=== PATIENT | male | born 1995 | race African-American/Black ===

== ENCOUNTER 2017-02-18 19:21 | Inpatient (IN) | payer OTHER ==
[~2017-02-18] VITALS: Ht 188 cm; Wt 121.1 kg
--- NOTE | ~2017-02-18 | S ---
[facility] [place] [address] SURGICAL PATH RPT PROCEDURE Name: FARRUKH HEIN V Room #: 438-P DIS IN M.R.#: [id number] Admission: 02/18/17 Date of : 89 Discharge: 02/20/17 Report #: [id number] Path Case #: [id number] PATHOLOGY REPORT COLLECTION DATE: 02/19/2017 RECEIVED DATE: 02/19/2017 SUBMITTING PHYS: Dr. Deandre Urena OTHER PHYS: SPECIMEN(S) RECEIVED: A.Appendix B.Mucoid cyst of peritoneum * * * * * * * * * * * * FINAL DIAGNOSIS: A. Appendix, appendectomy: - Acute appendicitis and serositis. - No evidence of carcinoid tumor. B. Peritoneum, excision: - Benign mesothelium lined cyst. COMMENT: This case is co-reviewed by Dr. Ericka Lundberg. PATHOLOGIST: Farrukh Flowers M.D. REPORT ELECTRONICALLY SIGNED BY: Farrukh Flowers M.D. DATE/TIME: 02/21/2017 13:08 * * * * * * * * * * * * GROSS PATHOLOGY: A. Received in formalin labeled "Farrukh Hein appendix," is an appendix measuring 7.8 cm in length and up to 1.2 cm in diameter with a minimal amount of attached mesoappendix. The serosal surface is pink-hinton with a slight amount of overlying adhesions, as well as exudate near the distal tip. Sectioning reveals a pinpoint to slightly patent lumen filled with blood-tinged fecal material. Leasing Property Manager sections are submitted in cassette A1 and A2, with the proximal margin and bisected tip submitted in cassette A1. B. The specimen is received in formalin labeled "Farrukh Hein, mucinous cyst from peritoneum". Received is a segment of transparent capsular tissue measuring 3.8 x 1.0 x 0.1 cm in greatest dimensions. The specimen is submitted entirely in cassette B1. (CAA; 02/20/2017) CLINICAL HISTORY: [facility] [place] [address] SURGICAL PATH RPT PROCEDURE Name: FARRUKH HENI V Room #: 438-P DIS IN M.R.#: [id number] Admission: 02/18/17 Date of : 89 Discharge: 02/20/17 Report #: [id number] Path Case #: [id number] Acute appendicitis, check for carcinoid tumor of appendix INITIAL CPT CODE(S): A; 79100 B; 07689 Professional services performed by [facility] at [address] , [place] [address] Technical services performed by [facility] at [address] [place] [address], [facility] [address] [address]. [facility] [address] [place] [address] PHONE: [phone] DIRECTOR: Dajuan Griggs M.D. * * * END OF REPORT * * *
--- NOTE | ~2017-02-18 | HC ---
[facility] [place] [address] CONSULTATION Name: CYN HURTADO V Room #: 438-[facility] IN M.R.#: [id number] Admission: 02/18/17 Attend Phys: Deandre Urena MD, F Discharge: 02/20/17 Date of : [birth year] Report #: [id number] THIS REPORT FOR: //name// CC: [facility] physician/PCP Deandre Urena TYPE OF REPORT: Pulmonary consultation. REFERRING PHYSICIAN: Deandre Urena M.D. REASON FOR REFERRAL: Hypoxia. HISTORY OF PRESENT ILLNESS: The patient is a 21-year-old -[place] male who is status post appendectomy and now with hypoxia. He is known to have enlarged tonsils. The patient was doing fairly well until following extubation, found to have moderate respiratory distress. He was found to have increased in upper respiratory breath sounds with effort. Chest x-ray shows possible pulmonary edema, mild infiltrates in the right lower lung field. The patient was placed on BiPAP and transferred to the ICU. Currently stable. He appears tachypneic. He denies any past history of asthma. He smokes a cigar a day. He denies any other chronic lung problems. The parents are present. They confirmed that he does have enlarged tonsil and the patient does snore. PAST MEDICAL HISTORY: Otherwise, unremarkable other than presentation abdominal pain with appendicitis. PAST SURGICAL HISTORY: As mentioned above. ALLERGIES: None to medications. HOME MEDICATIONS: None. FAMILY HISTORY: Noncontributory. SOCIAL HISTORY: This patient has smoked about a cigar a day. He works for the post [employer]. He drinks occasional beer. REVIEW OF SYSTEMS: As mentioned above, otherwise 10-point system reviewed and negative. PHYSICAL EXAMINATION: GENERAL: He is awake and alert, in no apparent distress. It appears mildly dyspneic. [facility] [address] [place] [address] CONSULTATION Name: CYN HURTADO V Room #: 438-P [facility] IN ..#: [id number] Admission: 02/18/17 Attend Phys: Deandre Urena MD, F Discharge: 02/20/17 Date of : 94 Report #: [id number] VITAL SIGNS: Temperature is 98 degrees Fahrenheit, pulse is 73, respiratory rate is 20, blood pressure 146/83 mmHg and saturation is 99%. HEENT: Normocephalic and atraumatic. Throat, tonsils are enlarged, 3+/4+ bilaterally. Mallampati score of 3. NECK: Supple, without lymphadenopathy or thyromegaly. CHEST: Breath sounds are clear bilaterally without any rales or wheezes. CARDIOVASCULAR: Normal S1 and S2. No murmurs or gallop. There is no JVD. There is no carotid bruit. Pulses are 2+/4+ bilaterally. ABDOMEN: Soft and mildly tender. No rebound tenderness. No masses. GENITOURINARY: Deferred. RECTAL: Deferred. EXTREMITIES: There is no edema, cyanosis or clubbing. RADIOLOGICAL DATA: Chest x-ray as mentioned above showing vascular congestion, possible subtle infiltrates involving the right lower lobe. A CT abdomen and pelvis shows acute appendicitis, free small fluid seen in the abdomen. LABORATORY DATA: Electrolytes are normal. WBC 12,600; hemoglobin is 13.6 and platelets are normal. Arterial blood gas revealed pH 7.34, pCO2 of 42 and pO2 80 on FiO2 100%. Albumin 3.7. IMPRESSION: 1. Acute hypoxic respiratory failure in this 21-year-old -[place] male. He is status post appendectomy. His examination remarkable for 3+ enlarged tonsils. Chest x-ray shows possible pulmonary edema. 2. The patient likely has mild negative pressure pulmonary edema. This is likely related to possible upper airway obstruction related to his enlarged consultation. Aspiration is possible. 3. Enlarge tonsils, 3+/4+ bilaterally. Mallampati score approximately 3. I think the patient will benefit from elective tonsillectomy at a later date. 4. Status post appendectomy. 5. Tobacco use. RECOMMENDATIONS: We will continue noninvasive positive pressure ventilation as needing. Wean O2 for saturation of 90%. The patient was already being given diuretics. Followup chest x-ray obtained. The patient was also given one dose of corticosteroids. At this time, the patient is stable. He should improve over time. His hypoxia is felt to be expectant given his upper airway pathology. The findings were discussed in detail with the patient's family along with the parents. [address] [address] CONSULTATION Name: BRYANTCYN V Room #: 438-P [facility] IN M.R.#: [id number] Admission: 02/18/17 Attend Phys: Deandre Urena MD, F Discharge: 02/20/17 Date of : 89 Report #: [id number] Thank you for this consultation. <ELECTRONICALLY SIGNED> By: Donovan Gaming MD 02/25/17 1920 1731 [id number] Donovan Gaming MD /nt
--- NOTE | ~2017-02-18 | H ---
[facility] [place] [address] HISTORY AND PHYSICAL Name: CYN HURTADO V Room #: 438-P ADM IN M.R.#: [id number] Admission: 02/18/17 Attend Phys: Deandre Urena MD, F Discharge: Date of : 94 Report #: [id number] THIS REPORT FOR: //name// CC: [facility] physician/PCP Deandre Urena DATE OF SERVICE: 02/19/2017 HISTORY OF PRESENT ILLNESS: This 21-year-old male has presented to Emergency Department with chief complaint of lower abdominal pain of approximately 18 hours' duration. The patient awakened on Saturday morning with lower abdominal pain. He was somewhat anorexic, but denied vomiting. 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 In the evening around 6:00 p.m., he had a full dinner, but did not have vomiting. The pain persisted and he came to the Emergency Department and a CT scan was consistent with early appendicitis. PAST MEDICAL HISTORY: Medical illnesses none. Surgical illnesses none. MEDICATIONS: None currently. ALLERGIES: No known drug allergies. FAMILY HISTORY: Mother is healthy. Paternal history unknown. SOCIAL HISTORY: Works for the post office, occasional cigar smoke and occasional beer, nothing on a regular basis. REVIEW OF SYSTEMS: A 10-point review of systems noncontributory except for the change in gastrointestinal function in the last 24 hours. PHYSICAL EXAMINATION: GENERAL: Reveals a well-developed, well-nourished male approximately 260 pounds. VITAL SIGNS: Within normal limits. HEENT: Pupils equal, round, react to light. No scleral icterus. NECK: Supple, no adenopathy. LUNGS: Clear at the bases bilaterally. CARDIOVASCULAR: Regular rate and rhythm. ABDOMEN: Tenderness of McBurney's point, no distention. Positive Rovsing's present. No previous surgical scars. NEUROLOGIC: The patient is oriented x 3 with bilateral motor symmetry. Review of laboratory demonstrates white count 15,000. CT scan is consistent with appendicitis. [facility] [place] [address] HISTORY AND PHYSICAL Name: BRYANTCYN Ashley Room #: 438-P ADM IN M.R.#: [id number] Admission: 02/18/17 Attend Phys: Deandre Urena MD, F Discharge: Date of : 94 Report #: [id number] PLAN: IV antibiotics, n.p.o. status is current, laparoscopic appendectomy today. <ELECTRONICALLY SIGNED> By: Deandre Urena MD, FACS 02/19/17 1523 0808 0839 Deandre Urena MD, FACS /nt
--- NOTE | ~2017-02-18 | HC ---
[facility] [place] [address] CONSULTATION Name: CYN HURTADO V Room #: 236-P [facility] IN M.R.#: [id number] Admission: 02/18/17 Attend Phys: Deandre Urena MD, F Discharge: Date of : 89 Report #: [id number] THIS REPORT FOR: //name// CC: [facility] physician/PCP Deandre Gaming MD DATE OF SERVICE: 02/19/2017 REASON FOR CONSULTATION: Airway obstruction with tonsillar hypertrophy. HISTORY OF PRESENT ILLNESS: The patient is a 21-year-old male who has had problems with tonsillar hypertrophy and snoring for as long as he can remember. He awoke yesterday with stomach pain and having acute appendicitis, underwent laparoscopic appendectomy today and on extubation was having fairly significant stridor following his general anesthetic. He was initially treated with BiPAP, which resolved his stridor. However, when removing the BiPAP, he was having significant stridor and airway obstructive issues. PAST MEDICAL HISTORY: Otherwise, noncontributory. He has not had an operation prior to his appendectomy. MEDICATIONS: Does not take any medication at home. 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 FAMILY HISTORY: Noncontributory. REVIEW OF SYSTEMS: Ten points essentially are negative except with BiPAP, he is breathing fine. PHYSICAL EXAMINATION: GENERAL: He is a well-developed male who is resting comfortably in bed with BiPAP in place, talking through the BiPAP. HEENT: Head is normocephalic. Pupils are equal, round. Nasal, no active rhinorrhea. Oral cavity has 4+ tonsils. No evidence of hemorrhagic tonsillitis or other inflammation in his hypopharynx or pharynx. NECK: No palpable adenopathy. His trachea is midline. EXTREMITIES: There is no crepitation. IMPRESSION: Severe tonsillar hypertrophy with airway obstruction, exacerbated by general anesthetic, relieved with BiPAP. PLAN: IV steroids should be somewhat helpful, although mainly the recovery from general anesthetic over the next 23 hours should be curative. While he is not [address] [address] CONSULTATION Name: BRYANTCYN V Room #: 236-P [facility] IN M.R.#: [id number] Admission: 02/18/17 Attend Phys: Deandre Urena MD, F Discharge: Date of : 94 Report #: [id number] taking significant narcotics, he should not have significant obstruction issues. He will need his tonsils out at some point in the future, but not at the same time that he is recovering from his acute appendicitis. He will follow up with me in the office as an outpatient. We will schedule tonsillectomy as soon as he is well enough. The patient understands this instruction and will follow up with me as an outpatient. By: [id number] [id number] Albino Russ MD /tonia
--- NOTE | ~2017-02-18 | O ---
[facility] [place] [address] OPERATIVE REPORT Name: CYN HURTADO V Room #: 438-P [facility] IN M.R.#: [id number] Admission: 02/18/17 Attend Phys: Deandre Urena MD, F Discharge: 02/20/17 Date of : 94 Report #: [id number] THIS REPORT FOR: //name// CC: [facility] physician/PCP Deandre Urena DATE OF SERVICE: 02/19/2017 PREOPERATIVE DIAGNOSIS: Acute appendicitis. POSTOPERATIVE DIAGNOSIS: Acute appendicitis, nonperforated. PROCEDURE: Laparoscopic appendectomy. SURGEON: Deandre Urena MD FIRE AND SAFETY HELPER: Juan Ramon Mandujano MS3 INDICATIONS: A 21-year-old male who has less than 24 hours of abdominal pain and localized to right lower quadrant. CT scan is consistent with appendicitis. OPERATIVE PROCEDURE: The patient had thorough discussion of the procedure, benefits and risks. He gave informed consent to proceed. He was given preoperative IV antibiotics. He had satisfactory induction of general endotracheal anesthesia. The patient's entire abdomen was prepped and draped in usual sterile procedure with DuraPrep solution. A 0.5% plain Naropin was utilized at all trocar sites. Initially, open cutdown procedure was performed at the infraumbilical position. The 5 mm trocar port was placed under direct vision. Pneumoperitoneum was established. The 5 mm trocar port was then upsized to a 12 mm port with a balloon. A left lower quadrant 5 mm trocar port was placed under direct vision. A lower midline 5 mm trocar port was placed under direct vision. The appendix was in the inferior cecal, laterally positioned, hard and inflamed and adherent to the lateral abdominal wall. A window was made in the mesoappendix. The base of the appendix was then crossclamped, ligated and divided with the ABY laparoscopic device blue load. The mesoappendix was taken down with the Sonicision Harmonic scalpel energy device. The tip of the appendix was quite bulbous with exudate on the surface, the anterior and lateral abdominal wall. The appendix was placed into a bag and removed from the peritoneal cavity. It was sent for histologic evaluation and consideration of possibility of carcinoid tumor of the tip of the appendix. Copious irrigation and evacuation of irrigating contents was accomplished. An 0 PDS suture was placed under direct vision at the infraumbilical port site with the suture passer. After an additional evacuation, irrigation and photographs being taken to be made part of the medical record, the pneumoperitoneum was evacuated. The trocars were removed under direct vision. No other intra-abdominal pathology was noted. The 0 PDS suture was ligated in place [address] [address] OPERATIVE REPORT Name: CYN HURTADO V Room #: 438-P [facility] IN M.R.#: [id number] Admission: 02/18/17 Attend Phys: Deandre Urena MD, F Discharge: 02/20/17 Date of : 94 Report #: [id number] after evacuation of the pneumoperitoneum. Skin margins were then approximated with subcuticular 4-0 Monocryl. Estimated blood loss was less than 25 mL for the entire procedure. The patient returned to the recovery room in satisfactory condition. During the extubation process, the patient had some obstruction of his upper airway secondary to hypertrophied tonsillar pillars as well as possible small degree of laryngeal obstruction and spasm. The patient tolerated this and did not have to be reintubated. He subsequently was placed in the intensive care unit overnight. He was seen in consultation by ENT as well as Pulmonary Medicine. <ELECTRONICALLY SIGNED> By: Deandre Urena MD, FACS 02/22/17 1148 1739 1756 Deandre Urena MD, FACS /nt
[2017-02-18 19:24] VITALS: BP 141/83
[2017-02-18] MEDS ORDERED: NOHOMEMEDICATIONS (19:40)
[2017-02-18 19:56] LABS: ABSOLUTE NEUTROPHILS 9.8 thou/uL (1.4-8.2); BASOPHILS 0.2 % (0.0-2.0); HEMATOCRIT 41.3 % (42.0-52.0); HEMOGLOBIN 13.6 gm/dL (14.0-18.0); LYMPHOCYTES 11.5 % (24.0-44.0); MANUAL DIFF NO; MCH 27.7 pg (26.0-34.0); MCV 84.1 fL (80.0-100.0); MONOCYTES 9.3 % (1.0-8.0); PLATELET COUNT 321 thou/uL (150-400); RBC 4.91 mil/uL (4.50-6.00); RDW 13.4 % (10.5-14.5); WBC 12.6 thou/uL (4.0-11.0)
[2017-02-18 19:57] LABS: CALCIUM 8.9 mg/dL (8.5-10.1); CREATININE 1.1 mg/dL (0.7-1.3); POTASSIUM 3.6 mmol/L (3.5-5.1)
[2017-02-18 20:02] LABS: ALBUMIN 3.7 g/dL (3.4-5.0); DIRECT BILIRUBIN 0.2 mg/dL (<0.1-0.3); TOTAL BILIRUBIN 0.8 mg/dL (<0.1-1.0); TOTAL PROTEIN 7.2 g/dL (6.4-8.2)
[2017-02-18 22:07] VITALS: BP 141/83
[2017-02-18 22:44] VITALS: BP 141/83
[2017-02-19] VITALS (13 sets, daily range): BP systolic 124–153; BP diastolic 72–98
[2017-02-19 15:16] LABS: ABG SAMPLE TYPE ARTERIAL; BE(vivo) -3.1 mmol/L (-2 to +3); HCO3 22.5 mmol/L (22.0-26.0); LACTATE 0.92 mmol/L (0.5-2.0); O2(CT) 21.4 mL/dL (15.0-23.0); O2Hb 94.4 % (92.0-98.0); PO2 80.9 mmHg (80.0-100.0); STICK SITE R.RADIAL; pH 7.346 (7.360-7.450); sO2 95.4 % (92.0-98.0); tCO2 23.7 mmol/L (24.0-30.0)
[2017-02-19 15:17] LABS: ABG COMMENT TIMED MODE 16/6; Pressure Support 16 cm H20; VDS BIPAP SPONTANEOUS cc
[2017-02-20] VITALS (14 sets, daily range): BP systolic 127–159; BP diastolic 67–106
[2017-02-20 06:44] LABS: HEMATOCRIT 43.6 % (42.0-52.0); HEMOGLOBIN 14.4 gm/dL (14.0-18.0); MCH 27.9 pg (26.0-34.0); MCV 84.7 fL (80.0-100.0); RBC 5.14 mil/uL (4.50-6.00); RDW 13.4 % (10.5-14.5); WBC 12.9 thou/uL (4.0-11.0)
[2017-02-20 06:58] LABS: CALCIUM 9.3 mg/dL (8.5-10.1); CREATININE 1.3 mg/dL (0.7-1.3); POTASSIUM 4.5 mmol/L (3.5-5.1)
== END 2017-02-20 18:00 | disposition home or self-care (01) | DRG 341 ==
LOC: ER 19:21 → 4S 21:41 → EROBS 21:41 → 4S 22:43 → ICU 02-19 16:18 → 4S 02-20 11:20 → ENTRNSPT 02-20 17:12 → 4S 02-20 18:00
PROVIDERS: Emergency Medicine; Surgery
PROC: 0DTJ4ZZ Resection of Appendix, Percutaneous Endoscopic Approach (ICD-10-PCS; principal; 2017-02-19)
DX: K35.80 Unspecified acute appendicitis (principal); J96.01 Acute respiratory failure with hypoxia; J35.1 Hypertrophy of tonsils; Z28.21 Immunization not carried out because of patient refusal
CPT/HCPCS: 10078; 10195; 50010; 50101; 50249; 50386; 50411; 50555; 50739; 50740; 50944; 50962; 51489; 51975; 52265; 53307; 54022; 54118; 56525; 56526; 62110; 62900; 70005

== ENCOUNTER 2017-03-14 11:34 | Emergency (ER) | payer OTHER ==
[~2017-03-14] VITALS: Ht 188 cm; Wt 117.9 kg
[~2017-03-14 11:34] MED LIST: NOHOMEMEDICATIONS
[2017-03-14 13:10] VITALS: BP 138/88
[2017-03-14] MEDS ORDERED: IBUPROFEN 600600 M1 PO (13:35)
== END 2017-03-14 13:44 | disposition home or self-care (01) ==
LOC: ER 11:34
DX: S60.811A Abrasion of right wrist, initial encounter (principal); F17.210 Nicotine dependence, cigarettes, uncomplicated; W22.8XXA Striking against or struck by other objects, initial encounter; Y93.89 Activity, other specified; Y92.89 Other specified places as the place of occurrence of the external cause; Y99.8 Other external cause status

== ENCOUNTER 2018-09-17 18:16 | Emergency (ER) | payer OTHER ==
[~2018-09-17] VITALS: Ht 185.4 cm; Wt 137.9 kg
[~2018-09-17 18:16] MED LIST changes: +IBUPROFEN 600600 M1 PO; +ULTRAM 50MG TAB50 MG PO
[2018-09-17] MEDS ORDERED: ALLEGRA-D 24 H1 EACH PO (18:40)
[2018-09-17] MEDS ORDERED: NAPROSYN500 MG PO (20:11)
[2018-09-17] MEDS ORDERED: AUGMENTIN 875-1 EACH PO (20:11)
[2018-09-17 20:21] VITALS: BP 132/71
== END 2018-09-17 20:21 | disposition home or self-care (01) ==
LOC: ER 18:16
DX: S81.812A Laceration without foreign body, left lower leg, initial encounter (principal); F17.210 Nicotine dependence, cigarettes, uncomplicated; W26.8XXA Contact with other sharp object(s), not elsewhere classified, initial encounter; Y93.55 Activity, bike riding; Y92.89 Other specified places as the place of occurrence of the external cause; Y99.8 Other external cause status